=== PATIENT | female | born 1985 | race Caucasian/White ===

== ENCOUNTER 2017-04-30 23:32 | Emergency (ER) | payer SELFPAY ==
[2017-05-01 01:57] VITALS: BP 130/83
== END 2017-05-01 01:57 | disposition home or self-care (01) ==
LOC: ED 23:32
DX: J06.9 Acute upper respiratory infection, unspecified (principal)

== ENCOUNTER 2018-11-05 03:21 | Emergency (ER) | payer MEDICAID ==
[~2018-11-05] VITALS: Ht 157.5 cm; Wt 70.8 kg
[2018-11-05 03:25] VITALS: Ht 157.5 cm; Wt 70.8 kg
[2018-11-05 04:16] VITALS: BP 130/83
== END 2018-11-05 04:16 | disposition short-term general hospital (02) ==
LOC: ED 03:21
DX: O46.93 Antepartum hemorrhage, unspecified, third trimester (principal); Z3A.35 35 weeks gestation of pregnancy

== ENCOUNTER 2019-08-05 18:07 | Emergency (ER) | payer MEDICAID ==
[~2019-08-05] VITALS: Ht 162.6 cm; Wt 70.8 kg
[2019-08-05 18:16] VITALS: Ht 162.6 cm; Wt 70.8 kg
[2019-08-05 22:38] VITALS: BP 128/70
== END 2019-08-05 22:38 | disposition home or self-care (01) ==
LOC: ED 18:07
DX: R51 Headache (principal); R11.0 Nausea
CPT/HCPCS: J1100; J1200; J2765; J3475; J7030

== ENCOUNTER 2019-12-10 19:10 | Emergency (ER) | payer MEDICAID ==
[~2019-12-10] VITALS: Ht 157.5 cm; Wt 69.0 kg
[2019-12-10 21:26] VITALS: BP 154/81
== END 2019-12-10 21:26 | disposition home or self-care (01) ==
LOC: ED 19:10
DX: R47.02 Dysphasia (principal); R07.0 Pain in throat